=== PATIENT | male | born 1950 | race Caucasian/White ===

== ENCOUNTER → 2017-01-19 | Outpatient (CLI) | payer MEDICARE, OTHER ==
[2017-01-19 09:58] LABS: MEAN CORPUSCULAR HGB CONC 34.9 g/dL (31.0-37.0); MEAN CORPUSCULAR VOLUME 95 FL (80-100); MEAN PLATELET VOLUME 9.1 FL (6.0-9.5); PLATELET COUNT 269 10^3uL (150-450)
[2017-01-19 10:02] LABS: MEAN CORPUSCULAR HEMOGLOBIN 33.1 PG (26.0-34.0)
[2017-01-19 10:09] LABS: BAND NEUTROPHILS % 0 % (0-6); EOSINOPHILS % 4 % (0-4); LYMPHOCYTES # 1.9 #; MONOCYTES # 0.3 #; MONOCYTES % 4 % (3-11); SEGMENTED NEUTROPHILS % 68 % (51-67); TOTAL CELLS COUNTED 100
[2017-01-19 10:10] LABS: RBC MORPH NORMAL (NORMAL)
[2017-01-19 10:22] LABS: ALBUMIN 4.7 g/dL (3.4-5.0); ANION GAP 13.8 MEQ/L (3-15); CALCULATED IONIZED CALCIUM 4.2 mg/dL (3.8-4.6); TOTAL PROTEIN 7.4 g/dL (6.4-8.5)
== END ==
LOC: LAB 09:42
PROVIDERS: ATTEND Surgery
DX: I10 Essential (primary) hypertension (principal); K59.00 Constipation, unspecified; J43.9 Emphysema, unspecified; Z72.0 Tobacco use
CPT/HCPCS: 36415; 80053; 84443; 85007; 85027

== ENCOUNTER 2017-01-20 08:03 | Day surgery (SDC) | payer MEDICARE, OTHER ==
[~2017-01-20] VITALS: Ht 188 cm; Wt 71.0 kg
[~2017-01-20 08:03] MED LIST: LACTATED RINGERS 1,000 ML IV SCH; SODIUM CHLORIDE FLUSH 3 ML SYR IV PRN
[2017-01-20 08:15] VITALS: BP 140/79
[2017-01-20] MEDS ORDERED: ALFENTANIL 500 MCG/ML (ALFENTA) 5 ML AMP IV ONE ×2 (09:39→09:41)
[2017-01-20] MEDS ORDERED: MIDAZOLAM 2 MG/2 ML (VERSED) VIAL ONE (09:40)
[2017-01-20] MEDS ORDERED: PROPOFOL 20 ML IV ONE (09:40)
[2017-01-20 10:41] VITALS: BP 97/58
[2017-01-20 10:59] VITALS: BP 107/62
== END 2017-01-20 11:11 | disposition home or self-care (01) ==
LOC: ASC 08:03
PROVIDERS: ATTEND Surgery
DX: K59.00 Constipation, unspecified (principal); D12.5 Benign neoplasm of sigmoid colon; K62.1 Rectal polyp; I10 Essential (primary) hypertension; J43.9 Emphysema, unspecified; F17.200 Nicotine dependence, unspecified, uncomplicated
CPT/HCPCS: 45380; 88305; J2250; J7120